=== PATIENT | female | born 1990 | race Caucasian/White ===

== ENCOUNTER 2019-11-28 19:42 | Emergency (ER) | payer SELFPAY | END 2019-11-28 20:15 | disposition home or self-care (01) | LOC: ERS 19:42 | DX: K04.7 Periapical abscess without sinus (principal) | CPT/HCPCS: 99282 ==

== ENCOUNTER 2023-08-08 17:18 | Emergency (ER) | payer OTHER, SELFPAY ==
[2023-08-08] MEDS ORDERED: Boostrix 0.5 ML (Tdap) VIAL (>/=7 yrs of age) ONE (19:36)
[2023-08-08] MEDS ORDERED: Ibuprofen 200 MG TAB ONE (19:44)
[2023-08-08] MEDS ORDERED: Amoxicillin/Potassium Clav 875 MG TAB ONE (20:04)
== END 2023-08-08 20:02 | disposition home or self-care (01) ==
LOC: ERS 17:18
DX: S51.851A Open bite of right forearm, initial encounter (principal); W55.01XA Bitten by cat, initial encounter
CPT/HCPCS: 90471; 90715